=== PATIENT | female | born 1965 | race African-American/Black ===

== ENCOUNTER → 2017-03-23 | Outpatient (CLI) | payer BC | LOC: WCC 09:50 | PROVIDERS: ATTEND Internal Medicine Infectious Disease | DX: T81.32XA Disruption of internal operation (surgical) wound, not elsewhere classified, initial encounter (principal); T81.89XA Other complications of procedures, not elsewhere classified, initial encounter; Y83.8 Other surgical procedures as the cause of abnormal reaction of the patient, or of later complication, without mention of misadventure at the time of the procedure; D50.8 Other iron deficiency anemias ==

== ENCOUNTER 2017-09-03 14:18 | Emergency (ER) | payer BC ==
[~2017-09-03] VITALS: Ht 157.5 cm; Wt 78.5 kg
[2017-09-03 16:03] LABS: BASOPHILS % 0.8 % (0.0-1.0); EOSINOPHILS % 1.1 % (0.0-6.0); HEMOGLOBIN 10.4 g/dL (12.0-16.0); LYMPHOCYTES # (AUTO) 1.6 (1.0-3.2); LYMPHOCYTES % 43.5 % (18.0-39.1); MEAN CORPUSCULAR HEMOGLOBIN 25.9 pg (28-32); MEAN CORPUSCULAR HGB CONC 31.5 g/dL (31-35); MEAN CORPUSCULAR VOLUME 82.1 fL (81-99); MONOCYTES # (AUTO) 0.3 (0.2-0.8); MONOCYTES % 9.2 % (4.4-11.3); NEUTROPHILS # (AUTO) 1.7 (2.1-6.9); NEUTROPHILS % 44.9 % (38.7-80.0); PLATELET COUNT 271 x10e3/uL (140-360); RED BLOOD COUNT 4.02 x10e6/uL (3.6-5.1); RED CELL DISTRIBUTION WIDTH 13.7 % (11.7-14.4)
[2017-09-03 16:07] LABS: INR 1.08; PARTIAL THROMBOPLASTIN TIME 34.8 seconds (23.8-35.5); PROTHROMBIN TIME 13.2 seconds (11.9-14.5)
[2017-09-03 16:15] LABS: ALANINE AMINOTRANSFERASE 23 IU/L (0-55); ALBUMIN 4.3 g/dL (3.5-5.0); ALBUMIN/GLOBULIN RATIO 1.2 (0.8-2.0); ALKALINE PHOSPHATASE 60 IU/L (40-150); ANION GAP 13.6 mmol/L (8-16); BLOOD UREA NITROGEN 14 mg/dL (7-26); BUN/CREATININE RATIO 18 (6-25); CALCIUM 9.4 mg/dL (8.4-10.2); CARBON DIOXIDE 24 mmol/L (22-29); CHLORIDE 104 mmol/L (98-107); CREATINE KINASE 221 IU/L (29-168); CREATININE, SERUM 0.78 mg/dL (0.57-1.11); EST GLOMERULAR FILTRATION RATE > 60 ML/MIN (60-); GLUCOSE 99 mg/dL (74-118); POTASSIUM 3.6 mmol/L (3.5-5.1); SODIUM 138 mmol/L (136-145)
--- NOTE | 2017-09-03 16:19 | Diagnostic Imaging Report ---
PROCEDURE: Frontal and lateral views of the chest. COMPARISON: None. INDICATIONS: CENTER CHEST PAIN FINDINGS: Lines/tubes: None. Lungs: The lungs are well inflated and clear. There is no evidence of pneumonia or pulmonary edema. Pleura: There is no pleural effusion or pneumothorax. Heart and mediastinum: The heart and the mediastinum are normal. Bones: No acute bony abnormality. IMPRESSION: 1. No acute cardiopulmonary disease. Dictated by: Napoleon Chavira M.D. on 09/03/2017 at 16:20 Electronically approved by: Napoleon Chavira M.D. on 09/03/2017 at 16:20
[2017-09-03 17:12] LABS: BILIRUBIN,URINE NEGATIVE (NEGATIVE); CLARITY,URINE SL CLOUDY (CLEAR); COLOR,URINE YELLOW (YELLOW); KETONES,URINE NEGATIVE (NEGATIVE); LEUKOCYTE ESTERASE ,URINE NEGATIVE (NEGATIVE); NITRITE,URINE NEGATIVE (NEGATIVE); PROTEIN,URINE DIPSTICK NEGATIVE (NEGATIVE); URINE UROBILINOGEN 0.2 mg/dL (0.2 - 1)
[2017-09-03 17:24] LABS: EPITHELIAL CELLS,URINE MODERATE /LPF
[2017-09-03 17:56] VITALS: BP 121/75
== END 2017-09-03 17:45 | disposition home or self-care (01) ==
LOC: ER 14:18
DX: R07.89 Other chest pain (principal); R20.2 Paresthesia of skin; K21.9 Gastro-esophageal reflux disease without esophagitis
CPT/HCPCS: 36415; 71046; 80053; 81001; 82550; 82553; 84484; 85025; 85610; 85730; 93005; 99284

== ENCOUNTER → 2017-11-25 | Outpatient (CLI) | payer BC | LOC: MAMMO 11:54 | PROVIDERS: ATTEND Internal Medicine | DX: Z12.31 Encounter for screening mammogram for malignant neoplasm of breast (principal) | CPT/HCPCS: 77067 ==

== ENCOUNTER → 2018-01-06 | Outpatient (CLI) | payer BC ==
--- NOTE | 2018-01-06 16:11 | Diagnostic Imaging Report ---
#[id number] - MGDXRT #UNILATERAL RIGHT DIGITAL DIAGNOSTIC MAMMOGRAM WITH SPOT COMPRESSION: 01/06/2018 Comparison is made to exam dated: 11/25/2017 mammogram - [facility]. Current study contains 2 films. The tissue of the right breast is heterogeneously dense. This may lower the sensitivity of mammography. Focal spot compression reveals no significant masses, calcifications, or other findings are seen in the breast. There has been no significant interval change. IMPRESSION: BENIGN There is no mammographic evidence of malignancy. A 1 year screening mammogram is recommended. The patient will be notified by letter of the results. Simon Brantley Jr., D.O. cw/:01/06/2018 14:44:09 Traffic Operator: Lizeth HAND)(M), [facility] letter sent: Normal Exam Mammogram BI-RADS: 2 Benign
== END ==
LOC: MAMMO 11:12
PROVIDERS: ATTEND Internal Medicine
DX: N63.10 Unspecified lump in the right breast, unspecified quadrant (principal)

== ENCOUNTER → 2019-02-22 | Outpatient (CLI) | payer BC ==
--- NOTE | 2019-02-24 09:14 | Diagnostic Imaging Report ---
#[id number] - MGSCRBIL #BILATERAL DIGITAL SCREENING MAMMOGRAM WITH CAD: 02/22/2019 CLINICAL: Routine screening. Comparison is made to exams dated: 01/06/2018 mammogram, 11/25/2017 mammogram - [facility] and 02/28/2013 mammogram - [facility]. Current study contains 4 films. The tissue of both breasts is heterogeneously dense. This may lower the sensitivity of mammography. Current study was also evaluated with a Computer Aided Detection (CAD) system. No significant masses, calcifications, or other findings are seen in either breast. IMPRESSION: NEGATIVE There is no mammographic evidence of malignancy. A 1 year screening mammogram is recommended. The patient will be notified by letter of the results. SON THOMAS M.D. ct/penrad:02/23/2019 15:16:51 Position Classifier: Lizeth HOLDER(Palomo)(John), [facility] letter sent: Normal Exam Mammogram BI-RADS: 1 Negative
== END ==
LOC: MAMMO 09:48
PROVIDERS: ATTEND Internal Medicine
DX: Z12.31 Encounter for screening mammogram for malignant neoplasm of breast (principal)
CPT/HCPCS: 77067

== ENCOUNTER 2019-09-17 12:37 | Emergency (ER) | payer BC ==
[~2019-09-17] VITALS: Ht 157.5 cm; Wt 78.5 kg
--- OUTSIDE RECORDS SUMMARY | 2019-09-17 12:41 | XMS REPORT ---
Author Author [facility] Organization [facility] Address Unknown Phone Unavailable Care Team Providers Care Line Dancer Name Role Phone NONSTAFF PP Unavailable NIGEL COLESFUL Unavailable Unavailable Pola LOMBARDO Unavailable Unavailable Payers Payer Name Policy Type Policy Number Effective Date Expiration Date [employer] [place] Ppo [id number] 2015 00:00:00 Problems This patient has no known problems. Allergies, Adverse Reactions, Alerts This patient has no known allergies or adverse reactions. Medications This patient has no known medications. Procedures and Interventions Procedure Date / Time Performed Performing Clinician X-ray of chest, two views 2017-09-03 00:00:00 JOE CASTELLANOS Encounters Start Date/Time End Date/Time Encounter Type Admission Type Attending [facility] Care Facility Care Department Encounter ID 2017-09-03 14:18:00 2017-09-03 17:45:00 Departed Emergency Room ER KATIUSKA LOMBARDO [facility] [id number] 2017-04-29 13:59:00 2017-04-29 13:59:00 Registered [facility] [id number] 2017-04-22 12:17:00 2017-04-22 12:17:00 Registered [facility] [id number] 2017-04-20 12:24:00 2017-04-20 12:24:00 Registered [facility] [id number] 2017-04-16 11:30:00 2017-04-16 11:30:00 Registered [facility] [id number] 2017-04-13 15:51:00 2017-04-13 15:51:00 Registered Clinic [facility] [id number] 2017-04-08 12:07:00 2017-04-08 12:07:00 Registered Clinic [facility] [id number] 2017-04-05 11:35:00 2017-04-05 11:35:00 Registered Clinic [facility] [id number] 2017-04-02 13:50:00 2017-04-02 13:50:00 Registered Clinic [facility] [id number] 2017-03-29 14:08:00 2017-03-29 14:08:00 Registered Clinic [facility] [id number] 2017-03-23 09:50:00 2017-03-23 09:50:00 Registered Clinic [facility] [id number] 2017-03-19 11:39:00 2017-03-19 11:39:00 Registered Clinic [facility] [id number] 2017-03-19 08:54:00 2017-03-19 08:54:00 Registered Clinic [facility] [id number] 2017-03-12 15:51:00 2017-03-12 15:51:00 Registered Clinic [facility] [id number] 2017-03-10 10:40:00 2017-03-10 10:40:00 Registered Clinic [facility] [id number] 2017-03-05 10:54:00 2017-03-05 10:54:00 Registered Clinic [facility] [id number] 2016-12-07 11:35:00 2016-12-07 11:35:00 Registered Clinic [facility] [id number] Results Test Description Test Time Test Comments Text Results Atomic Results Result Comments MAMMOGRAPHY DIGITAL SCR BILAT 2019-02-22 11:13:00 [place] [address] Patient Name: JOEL ZAYAS MR #: [id number] : 1965 Age/Sex: 53/F Req #: [id number] Adm Physician: Ordered by: LISS COLES Report #: [id number] Location: MAMMO Room/Bed: Procedure: [id number] MG/MAMMOGRAPHY DIGITAL SCR BILAT Exam Date: 02/22/19 Exam Time: 1000 REPORT STATUS: Signed #[id number] - MGSCRBIL #BILATERAL DIGITAL SCREENING MAMMOGRAM WITH CAD: 02/22/2019 CLINICAL: Routine screening. Comparison is made to exams dated: 01/06/2018 mammogram, 11/25/2017 mammogram - [facility] and 02/28/2013 mammogram - [facility]. Current study contains 4 films. The tissue of both breasts is heterogeneously dense. This may lower the sensitivity of mammography. Current study was also evaluated with a Computer Aided Detection (CAD) system. No significant masses, calcifications, or other findings are seen in either breast. IMPRESSION: NEGATIVE There is no mammographic evidence of malignancy. A 1 year screening mammogram is recommended. The patient will be notified by letter of the results. SON THOMAS M.D. ct/laurita:02/23/2019 15:16:51 Consumer Analyst: Lizeth HOLDER(R)(M), [facility] letter sent: Normal Exam Mammogram BI-RADS: 1 Negative Dictated By: SON THOMAS MD 1516 Transcribed By: LAURITA on 02/23/191515 COPY TO: LISS COLES MAMMOGRAPHY DIGITAL DX UNI RT 2018-01-06 11:54:00 [place] [address] Patient Name: JOEL ZAYAS MR #: [id number] : 1965 Age/Sex: 52/F Req #: [id number] [facility] Physician: Ordered by: LISS COLES Report #: [id number] Location: MAMMO Room/Bed: Procedure: MG/MAMMOGRAPHY DIGITAL DX UNI RT Exam Date: 01/06/18 Exam Time: 1116 REPORT STATUS: Signed #[id number] - MGDXRT #UNILATERAL RIGHT DIGITAL DIAGNOSTIC MAMMOGRAM WITH SPOT COMPRESSION: 01/06/2018 Comparison is made to exam dated: 11/25/2017 mammogram - [facility]. Current study contains 2 films. The tissue of the right breast is heterogeneously dense. This may lower the sensitivity of mammography. Focal spot compression reveals no significant masses, calcifications, or other findings are seen in the breast. There has been no significant interval change. IMPRESSION: BENIGN There is no mammographic evidence of malignancy. A 1 year screening mammogram is recommended. The patient will be notified by letter of the results. Simon Brantley Jr., D.O. cw/:01/06/2018 14:44:09 Consumer Analyst: Lizeth Ansari RT(R)(M), [facility] letter sent: Normal Exam Mammogram BI-RADS: 2 Benign Dictated By: SIMON BRANTLEY DO 1444 Transcribed By: LAURITA on 01/06/18 1444 COPY TO: LISS COLES MAMMOGRAPHY DIGITAL SCR BILAT 2017-11-25 14:29:00 [place] [address] Patient Name: JOEL ZAYAS MR #: [id number] : 1965 Age/Sex: 52/F Req #: [id number] Adm Physician: Ordered by: LISS COLES Report #: [id number] Location: MAMMO Room/Bed: Procedure: MG/MAMMOGRAPHY DIGITAL SCR BILAT Exam Date: 11/25/17 Exam Time: 1340 REPORT STATUS: Signed #[id number] - MGSCRBIL #BILATERAL DIGITAL SCREENING MAMMOGRAM WITH CAD: 11/25/2017 CLINICAL: Routine screening. Comparison is made to exams dated: 02/28/2013 mammogram and 01/24/2009 mammogram - [facility]. Current study contains 4 films. The tissue of both breasts is heterogeneously dense. This may lower the sensitivity of mammography. Current study was also evaluated with a Computer Aided Detection (CAD) system. There is a possible round mass in the right breast anterior depth superior region seen on the mediolateral oblique view only. Benign calcification in both breasts noted. No other significant masses, calcifications, or other findings are seen in either breast. IMPRESSION: INCOMPLETE: NEEDS ADDITIONAL IMAGING EVALUATION The possible round mass in the right breast is indeterminate. Additional views with possible ultrasound are recommended. The patient will be contacted by the Mammography Department to schedule this appointment. Simon Brantley Jr., D.O. cw/:12/03/2017 07:52:30 Consumer Analyst: Lizeth HOLDER(Paolmo)(M), [facility] letter sent: Additional Imaging Needed Mammogram BI-RADS: 0 Indeterminate Dictated By: SIMON BRANTLEY DO 1 Transcribed By: LAURITA on 12/03/17751 COPY TO: LISS COLES CT, ABDOMEN 2017-09-05 22:35:[address], ABDOMEN \\T\\ PELVIS, WITH IV CONTRAST INDICATION: "51-year-old woman with relapsing right midabdominal pain for 3 weeks, also nausea and vomiting. Has had hysterec chantell. Please do CT scan abdomen and pelvis with oral and IV contrast. Thank you" COMPARISON: None TECHNIQUE: Post contrast axially oriented images were obtained from the diaphragms through the pelvis. Coronal and sagittal reformats were provided. DOSE REDUCTION: Dose modulation, iterative reconstruction, and/or weight-based adjustment of the mA/kV was utilized to reduce the radiation dose to as low as reasonably achievable. FINDINGS: Lung bases are grossly clear. No acute abnormality of the solid abdominal viscera.Surgically absent gallbladder.Surgically absent uterus and ovaries. No acute abnormality of the hollow abdominal viscera.Normal appendix. No focal lytic or destructive bony process. IMPRESSION:No acute abnormality in the abdomen or pelvis. Signed: Mary Funes MDReport Verified Date/Time: 09/05/2017 22:35:44 Reading Location: [facility] [id number] Ortho Consult Reading Room Urine WBC 2017-09-03 17:24:00 Urine WBC (test tdlk=4739-9) NONE 0-5 Urine NMV4229-40-51 17:24:00* Test Item Value Reference Range Comments Urine RBC (test euhf=82859-6) NONE 0-5 Urine Yskfyzil3246-46-23 17:24:00* Test Item Value Reference Range Comments Urine Bacteria (test dpsa=19891-6) NONE NONE Urine Epithelial Ftnfj5635-72-04 17:24:00* Test Item Value Reference Range Comments Urine Epithelial Cells (test ospg=80685-4) MODERATE NONE Urine Xpazd1548-69-17 17:12:00* Test Item Value Reference Range Comments Urine Color (test olhg=7981-9) YELLOW YELLOW Urine Tmcfiag8676-66-36 17:12:00* Test Item Value Reference Range Comments Urine Clarity (test decz=27500-4) SL CLOUDY CLEAR Urine Specific Etlndlq3857-94-38 17:12:00* Test Item Value Reference Range Comments Urine Specific [place] (test bqzs=6569-2) 1.015 1.010-1.025 Urine lY2908-68-51 17:12:00* Test Item Value Reference Range Comments Urine pH (test bjqk=46568-9) 6 5-7 Urine Leukocyte Drtscggv1481-61-11 17:12:00* Test Item Value Reference Range Comments Urine Leukocyte Esterase (test igsx=1887-0) NEGATIVE NEGATIVE Urine Avxysnm3093-25-88 17:12:00* Test Item Value Reference Range Comments Urine Nitrite (test hdim=82326-1) NEGATIVE NEGATIVE Urine Fodpdct3339-21-74 17:12:00* Test Item Value Reference Range Comments Urine Protein (test kxie=6872-0) NEGATIVE NEGATIVE Urine Glucose (UA)2017-09-03 17:12:00* Test Item Value Reference Range Comments Urine Glucose (UA) (test pjed=7883-3) NEGATIVE NEGATIVE Urine Rqguexh2803-89-27 17:12:00* Test Item Value Reference Range Comments Urine Ketones (test fqrq=07163-9) NEGATIVE NEGATIVE Urine Xteccoccinua3707-54-07 17:12:00* Test Item Value Reference Range Comments Urine Urobilinogen (test fapn=23480-4) 0.2 0.2-1 Urine Ifglbqtlq2025-44-33 17:12:00* Test Item Value Reference Range Comments Urine Bilirubin (test vaeh=2809-6) NEGATIVE NEGATIVE Urine Rketl5020-98-93 17:12:00* Test Item Value Reference Range Comments Urine Blood (test ixpo=09332-7) NEGATIVE NEGATIVE Creatine Kinase VD7652-77-22 16:21:00* Test Item Value Reference Range Comments Creatine Kinase MB (test lxxj=12478-8) 1.20 0-5.0 Troponin G0285-08-39 16:21:00* Test Item Value Reference Range Comments Troponin I (test jaia=FFB6113) -0.001 0-0.300 Sodium Utxli9075-14-35 16:16:00* Test Item Value Reference Range Comments Sodium Level (test bvtx=2903-3) 138 136-145 Potassium Zpnxk5760-89-76 16:16:00* Test Item Value Reference Range Comments Potassium Level (test yfds=6596-0) 3.6 3.5-5.1 Chloride Bjrkb4335-44-21 16:16:00* Test Item Value Reference Range Comments Chloride Level (test cvog=8065-8) 104 98-107 Carbon Dioxide Hucoo4918-49-57 16:16:00* Test Item Value Reference Range Comments Carbon Dioxide Level (test ejrx=8034-2) 24 22-29 Anion Swu9654-74-09 16:16:00* Test Item Value Reference Range Comments Anion Gap (test rdme=14177-5) 13.6 8-16 Blood Urea Kgjniycx6442-34-78 16:16:00* Test Item Value Reference Range Comments Blood Urea Nitrogen (test xtgb=7136-0) 14 7-26 Ygfyskphjk0784-76-53 16:16:00* Test Item Value Reference Range Comments Creatinine (test zwnw=8592-0) 0.78 0.57-1.11 BUN/Creatinine Qvayk8725-49-53 16:16:00* Test Item Value Reference Range Comments BUN/Creatinine Ratio (test wyaf=4786-5) 18 6-25 Estimat Glomerular Filtration Fqkp1216-24-72 16:16:00* Test Item Value Reference Range Comments Estimat Glomerular Filtration Rate (test jjbz=30841-9) 60- >60 Ranges were taken from the National Kidney Disease Education Program and the [facility] Kidney Foundation literature.Reference ranges:60 or greater: Prxbss37-15 ( for 3 consecutive months): Chronic kidney disease 15 or less: Kidney failure Glucose Tlkes0314-08-15 16:16:00* Test Item Value Reference Range Comments Glucose Level (test rwxi=UDD2133) 99 74-118 Calcium Dyigb0008-56-68 16:16:00* Test Item Value Reference Range Comments Calcium Level (test skcm=75936-5) 9.4 8.4-10.2 Total Jsemefjhw1314-63-04 16:16:00* Test Item Value Reference Range Comments Total Bilirubin (test ktyw=9254-9) 0.6 0.2-1.2 Aspartate Amino Transf (AST/SGOT)2017-09-03 16:16:00* Test Item Value Reference Range Comments Aspartate Amino Transf (AST/SGOT) (test code=Aspartate Amino Transf (AST/SGOT)) 21 5-34 Alanine Aminotransferase (ALT/SGPT)2017-09-03 16:16:00* Test Item Value Reference Range Comments Alanine Aminotransferase (ALT/SGPT) (test rgig=8427-5) 23 0-55 Total Wnxtqyf4144-81-19 16:16:00* Test Item Value Reference Range Comments Total Protein (test arsh=8881-6) 7.9 6.5-8.1 Btnqcsf8491-64-11 16:16:00* Test Item Value Reference Range Comments Albumin (test wrze=8134-9) 4.3 3.5-5.0 Nqeruuud1466-48-15 16:16:00* Test Item Value Reference Range Comments Globulin (test jmjv=78172-3) 3.6 2.3-3.5 Albumin/Globulin Tqeei7693-01-83 16:16:00* Test Item Value Reference Range Comments Albumin/Globulin Ratio (test htjg=6445-4) 1.2 0.8-2.0 Alkaline Rhnquzzmrmr3708-89-84 16:16:00* Test Item Value Reference Range Comments Alkaline Phosphatase (test qioh=9273-1) 60 40-150 Creatine Plvrbb7498-13-89 16:16:00* Test Item Value Reference Range Comments Creatine Kinase (test arql=2276-9) 221 29-168 Prothrombin Wqyz1261-41-89 16:08:00* Test Item Value Reference Range Comments Prothrombin Time (test wtaf=3403-0) 13.2 11.9-14.5 Prothromb Time International Jcddi8447-70-98 16:08:00* Test Item Value Reference Range Comments Prothromb Time International Ratio (test azgu=6716-4) 1.08 Oral Anticoagulant Therapy INR Values:1. Low Intensity Therapy 1.5 - 2.02 . Moderate Intensity Therapy 2.0 - 3.03. High Intensity Therapy(1) 2.5 - 3. 54. High Intensity Therapy(2) 3.0 - 4.05. Panic Value INR > 5.0 Activated Partial Thromboplast Nqsp5230-68-29 16:08:00* Test Item Value Reference Range Comments Activated Partial Thromboplast Time (test xvge=62430-7) 34.8 23.8-35.5 White Blood Sbbsn0537-40-44 16:03:00* Test Item Value Reference Range Comments White Blood Count (test fzjy=7733-5) 3.70 4.8-10.8 Red Blood Kkzjp1443-61-72 16:03:00* Test Item Value Reference Range Comments Red Blood Count (test obgd=641-4) 4.02 3.6-5.1 Wpgfkwovpw7646-03-69 16:03:00* Test Item Value Reference Range Comments Hemoglobin (test yrpk=84081-6) 10.4 12.0-16.0 Pzthhedpnl9933-68-36 16:03:00* Test Item Value Reference Range Comments Hematocrit (test eqkw=6400-9) 33.0 34.2-44.1 Mean Corpuscular Mfgavj2726-79-36 16:03:00* Test Item Value Reference Range Comments Mean Corpuscular Volume (test jewa=718-2) 82.1 81-99 Mean Corpuscular Qiacpcipzg3294-83-87 16:03:00* Test Item Value Reference Range Comments Mean Corpuscular Hemoglobin (test bxva=789-9) 25.9 28-32 Mean Corpuscular Hemoglobin Vriaaeg7649-36-51 16:03:00* Test Item Value Reference Range Comments Mean Corpuscular Hemoglobin Concent (test zldb=911-7) 31.5 31-35 Red Cell Distribution Fvjwj8791-04-92 16:03:00* Test Item Value Reference Range Comments Red Cell Distribution Width (test ufzh=50726-1) 13.7 11.7-14.4 Platelet Osnqd2712-29-38 16:03:00* Test Item Value Reference Range Comments Platelet Count (test ujjf=071-8) 271 140-360 Neutrophils (%) (Auto)2017-09-03 16:03:00* Test Item Value Reference Range Comments Neutrophils (%) (Auto) (test eumf=87268-4) 44.9 38.7-80.0 Lymphocytes (%) (Auto)2017-09-03 16:03:00* Test Item Value Reference Range Comments Lymphocytes (%) (Auto) (test zahk=163-2) 43.5 18.0-39.1 Monocytes (%) (Auto)2017-09-03 16:03:00* Test Item Value Reference Range Comments Monocytes (%) (Auto) (test chww=0129-5) 9.2 4.4-11.3 Eosinophils (%) (Auto)2017-09-03 16:03:00* Test Item Value Reference Range Comments Eosinophils (%) (Auto) (test fkom=178-1) 1.1 0.0-6.0 Basophils (%) (Auto)2017-09-03 16:03:00* Test Item Value Reference Range Comments Basophils (%) (Auto) (test fitb=968-4) 0.8 0.0-1.0 IM GRANULOCYTES %2017-09-03 16:03:00* Test Item Value Reference Range Comments IM GRANULOCYTES % (test code=IM GRANULOCYTES %) 0.5 0.0-1.0 Neutrophils # (Auto)2017-09-03 16:03:00* Test Item Value Reference Range Comments Neutrophils # (Auto) (test ucai=244-0) 1.7 2.1-6.9 Lymphocytes # (Auto)2017-09-03 16:03:00* Test Item Value Reference Range Comments Lymphocytes # (Auto) (test sgxd=94048-7) 1.6 1.0-3.2 Monocytes # (Auto)2017-09-03 16:03:00* Test Item Value Reference Range Comments Monocytes # (Auto) (test aauo=656-7) 0.3 0.2-0.8 Eosinophils # (Auto)2017-09-03 16:03:00* Test Item Value Reference Range Comments Eosinophils # (Auto) (test fcly=024-1) 0.0 0.0-0.4 Basophils # (Auto)2017-09-03 16:03:00* Test Item Value Reference Range Comments Basophils # (Auto) (test tfbi=246-3) 0.0 0.0-0.1 Absolute Immature Granulocyte (divh2473-14-73 16:03:00* Test Item Value Reference Range Comments Absolute Immature Granulocyte (auto (test code=Absolute Immature Granulocyte (auto) 0.02 0-0.[address] [facility] [address] [place] [address] Patient Name: JOEL ZAYAS MR #: [id number] : 1965 Age/Sex: 51/F Req #: [id number] Adm Physician: Ordered by: JOE CASTELLANOS NP Report #: [id number] Location: ER Room/Bed: Procedure: [id number] DX/CHEST 2 VIEWS Exam Date: Exam Time: 1604 REPORT STATUS: Signed PRO CEDURE: Frontal and lateral views of the chest. COMPARISON: None. INDICATIONS: CENTER CHEST PAIN FINDINGS: Lines/tubes: None. Lungs: The lungs are well inflated and clear. There is no evidence of pneum onia or pulmonary edema. Pleura: There is no pleural effusion or pneumoth orax. Heart and mediastinum: The heart and the mediastinum are normal. Bones: No acute bony abnormality. IMPRESSION: 1. No acute car diopulmonary disease. Dictated by: Napoleon Lyn M.D. on 09/03/2017 at 16 :20 Electronically approved by: Napoleon Lyn M.D. on 09/03/2017 at 16:2 0 Dictated By: NAPOLEON LYN MD 1620 Transcribed By: SABINA on 09/03/17 1620 AMMONIUM NITRATE CRYSTALLIZER Y TO: JOE CASTELLANOS NP
[2019-09-17] MEDS ORDERED: MECLIZINE HCL 12.5 MG TAB PO ONE (13:15)
[2019-09-17 13:48] LABS: BASOPHILS % 0.9 % (0.0-1.0); EOSINOPHILS % 1.2 % (0.0-6.0); HEMATOCRIT 36.2 % (34.2-44.1); HEMOGLOBIN 11.3 g/dL (12.0-16.0); LYMPHOCYTES # (AUTO) 1.3 (1.0-3.2); LYMPHOCYTES % 38.7 % (18.0-39.1); MEAN CORPUSCULAR HEMOGLOBIN 26.2 pg (28-32); MEAN CORPUSCULAR HGB CONC 31.2 g/dL (31-35); MEAN CORPUSCULAR VOLUME 83.8 fL (81-99); MONOCYTES # (AUTO) 0.4 (0.2-0.8); MONOCYTES % 10.8 % (4.4-11.3); NEUTROPHILS # (AUTO) 1.7 (2.1-6.9); NEUTROPHILS % 48.1 % (38.7-80.0); PLATELET COUNT 329 x10e3/uL (140-360); RED BLOOD COUNT 4.32 x10e6/uL (3.6-5.1); RED CELL DISTRIBUTION WIDTH 13.4 % (11.7-14.4)
[2019-09-17] MEDS ORDERED: AMLODIPINE BESYLATE 10 MG TAB PO ONE (14:00)
[2019-09-17 14:04] LABS: INR 0.96; PROTHROMBIN TIME 13.4 seconds (11.9-14.5)
[2019-09-17 14:16] LABS: ALANINE AMINOTRANSFERASE 23 IU/L (0-55); ALBUMIN 4.3 g/dL (3.5-5.0); ALBUMIN/GLOBULIN RATIO 1.3 (0.8-2.0); ALKALINE PHOSPHATASE 53 IU/L (40-150); ANION GAP 13.6 mmol/L (8-16); BLOOD UREA NITROGEN 11 mg/dL (7-26); BUN/CREATININE RATIO 13 (6-25); CALCIUM 9.6 mg/dL (8.4-10.2); CARBON DIOXIDE 27 mmol/L (22-29); CHLORIDE 103 mmol/L (98-107); CREATINE KINASE 230 IU/L (29-168); CREATININE, SERUM 0.88 mg/dL (0.57-1.11); EST GLOMERULAR FILTRATION RATE > 60 ML/MIN (60-); GLUCOSE 98 mg/dL (74-118); POTASSIUM 3.6 mmol/L (3.5-5.1); SODIUM 140 mmol/L (136-145)
--- NOTE | 2019-09-17 14:32 | Diagnostic Imaging Report ---
EXAMINATION: CHEST SINGLE (PORTABLE) INDICATION: ^HTN ^[id number] ^[id number] COMPARISON: None FINDINGS: AP view TUBES and LINES: None. LUNGS: Lungs are well inflated. Lungs are clear. There is no evidence of pneumonia or pulmonary edema. PLEURA: No pleural effusion or pneumothorax. HEART AND MEDIASTINUM: The cardiomediastinal silhouette is unremarkable.. BONES AND SOFT TISSUES: No acute osseous lesion. Soft tissues are unremarkable. UPPER ABDOMEN: No free air under the diaphragm. IMPRESSION: No acute thoracic abnormality. Signed by: Dr. Rita Miller M.D. on 09/17/2019 2:28 PM
--- NOTE | 2019-09-17 14:45 | Diagnostic Imaging Report ---
Examination: CT BRAIN WO CONTRAST History:Imbalance. Hypertension. Comparison studies:None Technique: Axial images were obtained from the skull base to the vertex. Coronal and sagittal images reconstructed from the axial data. Dose modulation, iterative reconstruction, and/or weight based adjustment of the mA/kV was utilized to reduce the radiation dose to as low as reasonably achievable. Intravenous contrast: None Findings: Scalp: No abnormalities. Bones: No fractures, blastic or lytic lesions. Brain sulci: Appropriate for age. Ventricles: Normal in size and configuration. No hydrocephalus. Extra-axial space: No abnormalities. Parenchyma: No masses, hemorrhage, or acute or chronic cortical based vascular insults.. Sellar/suprasellar region: No abnormalities. Craniocervical junction: Patent foramen magnum. No Chiari one malformation. Incidental findings: None. Impression: No intracranial abnormalities. Signed by: Dr. Madelin Hendrickson M.D. on 09/17/2019 2:41 PM
[2019-09-17 14:53] VITALS: BP 142/77
== END 2019-09-17 15:00 | disposition home or self-care (01) ==
LOC: ER 12:37
DX: R42 Dizziness and giddiness (principal); I10 Essential (primary) hypertension; K21.9 Gastro-esophageal reflux disease without esophagitis; M54.9 Dorsalgia, unspecified; G89.29 Other chronic pain
CPT/HCPCS: 36415; 70450; 71045; 80053; 82550; 82553; 84484; 85025; 85610; 85730; 93005; 99284; J8597

== ENCOUNTER → 2020-05-21 | Outpatient (CLI) | payer OTHER ==
[~2020-05-21] MED LIST: COVID-19 VACC, MRNA(MODERNA)/PF 100 MCG/0.5 ML VIAL IM ONE
== END ==
LOC: VACCPMC 13:44
DX: Z23 Encounter for immunization (principal); Z20.828 Contact with and (suspected) exposure to other viral communicable diseases

== ENCOUNTER → 2020-06-27 | Outpatient (CLI) | payer OTHER | END | DRG 951 | LOC: VACCPMC 09:33 | DX: Z23 Encounter for immunization (principal); Z20.822 Contact with and (suspected) exposure to COVID-19 | CPT/HCPCS: 0012A; 91301 ==

== ENCOUNTER → 2020-11-28 | Outpatient (CLI) | payer BC, OTHER | LOC: MAMMO 14:26 | PROVIDERS: ATTEND Internal Medicine Endocrinology, Diabetes & Metabolism | DX: Z12.31 Encounter for screening mammogram for malignant neoplasm of breast (principal) | CPT/HCPCS: 77067 ==

== ENCOUNTER → 2021-03-20 | Outpatient (CLI) | payer OTHER | LOC: VACCPMC 09:00 | DX: Z23 Encounter for immunization (principal); Z20.822 Contact with and (suspected) exposure to COVID-19 ==

== ENCOUNTER 2021-04-15 13:08 | Emergency (ER) | payer OTHER ==
[~2021-04-15] VITALS: Ht 157.5 cm; Wt 78.9 kg
[2021-04-15] MEDS ORDERED: SODIUM CHLORIDE 0.9% 1000ML 1,000 ML IV STA (13:44)
[2021-04-15 14:02] LABS: BASOPHILS % 0.9 % (0.0-1.0); EOSINOPHILS % 0.9 % (0.0-6.0); HEMATOCRIT 35.6 % (34.2-44.1); HEMOGLOBIN 10.8 g/dL (12.0-16.0); LYMPHOCYTES # (AUTO) 1.5 (1.0-3.2); LYMPHOCYTES % 44.9 % (18.0-39.1); MEAN CORPUSCULAR HEMOGLOBIN 25.4 pg (28-32); MEAN CORPUSCULAR HGB CONC 30.3 g/dL (31-35); MEAN CORPUSCULAR VOLUME 83.8 fL (81-99); MONOCYTES # (AUTO) 0.4 (0.2-0.8); NEUTROPHILS # (AUTO) 1.4 (2.1-6.9); NEUTROPHILS % 40.7 % (38.7-80.0); PLATELET COUNT 311 x10e3/uL (140-360); RED BLOOD COUNT 4.25 x10e6/uL (3.6-5.1); RED CELL DISTRIBUTION WIDTH 14.3 % (11.7-14.4)
[2021-04-15 14:10] LABS: CLARITY,URINE CLEAR (CLEAR); COLOR,URINE YELLOW (YELLOW); KETONES,URINE 1+ (NEGATIVE); LEUKOCYTE ESTERASE ,URINE NEGATIVE (NEGATIVE); NITRITE,URINE NEGATIVE (NEGATIVE); PROTEIN,URINE DIPSTICK TRACE (NEGATIVE); URINE UROBILINOGEN 1 mg/dL (0.2 - 1)
[2021-04-15 14:11] LABS: BACTERIA,URINE RARE /HPF; RBC,URINE 0-5 /HPF (0-5); WBC,URINE (MAN) 0-5 /HPF (0-5)
[2021-04-15 14:13] LABS: EPITHELIAL CELLS,URINE MANY /LPF
[2021-04-15 14:22] LABS: ALBUMIN 4.4 g/dL (3.5-5.0); ALBUMIN/GLOBULIN RATIO 1.6 (0.8-2.0); ANION GAP 13.6 mmol/L (8-16); CALCIUM 8.5 mg/dL (8.4-10.2); CREATININE, SERUM 0.75 mg/dL (0.57-1.11); POTASSIUM 3.6 mmol/L (3.5-5.1)
[2021-04-15 14:28] LABS: CREATINE KINASE MB 2.3 ng/mL (0-5.0)
[2021-04-15] MEDS ORDERED: SODIUM CHLORIDE 0.9% 50ML 50 ML ONE (16:00)
[2021-04-15] MEDS ORDERED: IOPAMIDOL 370 MG/ML 200 ML INFUS..BTL INJ ONE (16:00)
[2021-04-15] MEDS ORDERED: KETOROLAC TROMETHAMINE 30 MG/ML VIAL IV NR (16:35)
[2021-04-15 16:49] VITALS: BP 134/72
== END 2021-04-15 17:04 | disposition home or self-care (01) ==
LOC: ER 13:44
DX: R10.12 Left upper quadrant pain (principal); K21.9 Gastro-esophageal reflux disease without esophagitis; F41.9 Anxiety disorder, unspecified; G47.00 Insomnia, unspecified; M54.9 Dorsalgia, unspecified; G89.29 Other chronic pain
CPT/HCPCS: 36415; 74177; 80053; 81001; 82550; 82553; 83690; 84484; 85025; 87086; 99284; J1885; J7030; Q9967